=== PATIENT | female | born 1955 | race Caucasian/White ===

== ENCOUNTER 2020-01-08 13:54 | Inpatient (IN) | payer MEDICARE, OTHER ==
[~2020-01-08] VITALS: Ht 160 cm; Wt 58.1 kg
--- NOTE | 2020-01-09 07:40 | NUR ---
TARGETEER NOTE: 64 YEAR OLD FEMALE BROUGHT INTO THE HOSPITAL VIA AMBULANCE ON A GURNEY WITH EMS PRESENT. PT ADMITTED ON A 5150 HOLD FOR GD. PT WAS FOUND BY STAFF AT [facility] TO HAVE NOT SLEPT IN THREE DAYS AND WAS NOT ORIENTED TO PERSON, PLACE AND TIME. PER COLLATERAL INFORMATION, PATIENT REPORTED BEING A 19 YEAR OLD. PT STATED SHE ATTEMPTED TO DRINK HAND DIRECTOR OF MIDWIFERY/STAFF MIDWIFE AND PUT IT ON HER HAIR AND CAMACHO. PATIENT HAS A HISTORY OF SCHIZOPHRENIA WITH MULITPLE PREVIOUS IN PATIENT PSYCHIATRIC HOSPITALIZATIONS. PT ADMITTED ON A 5150 HOLD FOR GD. PT UNABLE TO PROVIDE A SAFE PLAN OF CARE FOR SELD. UPON FACE TO FACE EVALUATION, PT IS DISHEVELED, UNCLEAN AND UNKEPT. PT APPEARS TO BE RESPONDING TO INTERNAL STIMULI. PT IS UNWILLING TO ANSWER QUESTIONS DURING INITIAL INTERVIEW. PT IS CONFUSED AND A+OX1, ABLE TO MAKE BASIC NEEDS KNOWN. PT SPEECH GARBLED, HYPERVERBAL AND PRESSURED. PT HAS A MEDICAL HISTORY OF CAROTID STENOSIS, HYPERTENSION, SEIZURE DISORDER, THROAT CANCER, OSTEOARTHRITIS AND GERD. VSS, NKDA. PT ORIENTED TO THE UNIT. PATIENTS RIGHT'S AND GUIDE BOOK GIVEN. PT REFUSED PNEUMOCOCCAL AND FLU SHOT. ATTEMPTED TO EDUCATED PT RE IMPORTANCE OF VACCINATIONS.
[2020-01-09 08:00] VITALS: BP 132/73
[2020-01-09] MEDS ORDERED: MAGNESIUM HYDROXIDE 30 ML UDC PO PRN ×2 (08:00→10:30)
[2020-01-09] MEDS ORDERED: ACETAMINOPHEN 325 MG TABLET PO PRN (08:00)
[2020-01-09] MEDS ORDERED: MAG HYDROX/AL HYDROX/SIMETH 30 ML UDC PO PRN (08:00)
[2020-01-09] MEDS ORDERED: BLOOD SUGAR DIAGNOSTIC 1 EACH STRIP IN ONE (08:00)
[2020-01-09] MEDS ORDERED: AMLO10TA7 PO (08:07)
[2020-01-09] MEDS ORDERED: ARIP5TAB10 PO (08:09)
[2020-01-09] MEDS ORDERED: TRAZ-182 PO (08:09)
[2020-01-09] MEDS ORDERED: SERT50TA PO (08:09)
[2020-01-09] MEDS ORDERED: AMLO5TAB9 PO (08:27)
[2020-01-09] MEDS ORDERED: [UNRECOGNIZED DRUG - CODE] PO (08:27)
[2020-01-09] MEDS ORDERED: ALEN70TA3 PO (08:27)
[2020-01-09] MEDS ORDERED: VITA400C19 PO (08:27)
[2020-01-09] MEDS ORDERED: VALB40CA PO (08:27)
[2020-01-09] MEDS ORDERED: ALBU18HF2 IH (08:27)
[2020-01-09] MEDS ORDERED: ACET-868 PO (08:27)
[2020-01-09] MEDS ORDERED: TEMA30CA5 PO (08:27)
[2020-01-09] MEDS ORDERED: PROP20TA7 PO (08:27)
[2020-01-09] MEDS ORDERED: HALO100A2 IM (08:27)
[2020-01-09] MEDS ORDERED: DIPH50CA38 PO (08:27)
[2020-01-09] MEDS ORDERED: UMEC1BLS IH (08:27)
[2020-01-09] MEDS ORDERED: FAMO20TA8 PO (08:27)
[2020-01-09] MEDS ORDERED: HALO5TAB PO (08:27)
[2020-01-09] MEDS ORDERED: MAGN400O6 PO (08:27)
--- NOTE | 2020-01-09 09:38 | NUR ---
GPS RN NOTE : DR SARGENT NOTIFIED OF A NEW ADMISSION WITH STANDING ORDERS , DR CUELLO NOTIFIED TO RECONCILED HOME MEDICATION, T/.O ORDER ALBUTEROL RN INHALER Q 4 RH PRN ORDER PLACED AND CARED OUT WILL CONTINUE MONITORING.
[2020-01-09] MEDS: BENZTROPINE MESYLATE (1 MG) 1 MG TABLET PO SCH ×2 (09:50→16:54)
[2020-01-09] MEDS: HALOPERIDOL 5 MG TABLET PO SCH ×2 (09:50→16:54)
[2020-01-09] MEDS ORDERED: ALBUTEROL FS 2.5 MG/0.5 ML VIAL.NEB NEB PRN (10:00)
--- NOTE | 2020-01-09 10:02 | NUR ---
FACILITY CONTACT: SW contacted [facility] Address: [address], [place] [address] for collateral and discharge planning and spoke to Liudmila order dispatcher who stated Yolanda estate administrator is currently not available and asked SW to call back in an hour.
[2020-01-09] MEDS: LORAZEPAM 0.5 MG TABLET PO PRN ×2 (10:04→21:44)
--- NOTE | 2020-01-09 10:06 | NUR ---
RN NOTE: ANXIETY PT EXHIBITING AGGRESSIVE BEHAVIOR. UNABLE TO BE REDIRECTED. MEDICATED WITH ATIVAN 0.5 MG PO PRN
[2020-01-09] MEDS ORDERED: FAMOTIDINE (20 MG) 20 MG TABLET PO PRN (10:30)
[2020-01-09] MEDS ORDERED: ALBUTEROL SULFATE INH 18 GM HFA.AER.AD IH PRN (10:30)
[2020-01-09] MEDS ORDERED: Medication Not On Formulary EA (Umeclidinium Brm/Vilanterol Tr (Anoro Ellipta 62.5-25 Mc IH PRN (10:30)
[2020-01-09] MEDS ORDERED: ALBUTEROL FS 2.5 MG/3 ML VIAL.NEB NEB PRN (11:00)
--- NOTE | 2020-01-09 11:02 | NUR ---
SW COLLATERAL CONTACT: SW contacted pts case advocate at [employer] ([phone]) who provided with collateral information. Per Linh, pt has been living at [facility] Address: [address], [place] [address] for over 10 years and states pt does not have any family or friend contact. Linh states, she does not have any personal history on pt and [facility] pt has been psychiatrically hospitalized several times and was psychiatrically hospitalized for 4 years at [facility]. Per Linh, pt is under the psychiatric care of Dr. Efrem Price [address] [place] [id number] [address] [employer] Dr. Jakob Diaz Address: [address] [place] [address] . Per Linh, pt also recently received Haldol Dec 2/3 weeks ago and stated she was not sure of the dose and would contact with updated medication information. Per Linh, pt will also return to [facility] Address: [address], [place] [address] once stable for discharge and transportation with be provided.
--- NOTE | 2020-01-09 12:07 | NUR ---
INITIAL DISCHARGE PLAN: Pt will return to [facility] Address: [address], [place] [address] . Per case making machine operator [employer] ([phone]) pt will return once stable for discharge. NIKKO will help form a safe and proper discharge in collaboration with .
[2020-01-09 15:40] VITALS: BP 132/73
[2020-01-09 16:00] VITALS: BP 143/74
--- NOTE | 2020-01-09 16:07 | NUR ---
NIKKO COLLATERAL CONTACT: NIKKO received a call from pts medical case worker at [employer] [facility] ([phone]) who stated that pt last received 100mg of Haldol Dec on 12/11/19 on the Left Glut and is due every 4 weeks. NIKKO informed pts RN to request order from .
[2020-01-09] MEDS: VITAMIN E 400 UNIT CAPSULE PO SCH (16:54)
[2020-01-09] MEDS ORDERED: VITAMIN E 400 UNIT PO SCH (17:00)
[2020-01-09 19:59] VITALS: BP 106/65
[2020-01-09] MEDS: PROPRANOLOL HCL 10 MG TABLET PO SCH (20:51)
--- NOTE | 2020-01-09 20:53 | NUR ---
GPS RN NOTES: REFUSED MEDICATION PT REFUSED PROPRANOLOL DUE AT 2100. PT TEARFUL AND STATED, "I CANT. BLOOD PRESSURE IS NOT A THING." EXPLAIN RISK AND BENEFITS X3. PT INCREASED AGITATION. CONTINUE TO MONITOR.
--- NOTE | 2020-01-09 21:45 | NUR ---
GPS RN NOTES: ANXIOUS UPON DOING ROUNDS, PT YELLING IN HER ROOM TALKING TO HERSELF LOUDLY. PT RESTLESS, ANGRY, ANXIOUS. PT STATED, "WHATS GOT TO DO?!" OFFERED ATIVAN PRN ORDERED. PT AGREED AND TOLERATED MEDICATION WELL. CONTINUE TO MONITOR.
--- NOTE | 2020-01-10 00:33 | NUR ---
GPS RN NOTES: UPON DOING ROUNDS, PT AWAKE TALKING TO HERSELF. PT OPENING AND CLOSING HER DOOR. PT STATED SHE IS UNABLE TO SLEEP. OFFERED RESTORIL PRN ORDERED. PT AGREED THEN REFUSED MEDICATION. PT OPENED CAPSULE AND STATED, "THIS SHIT IS POP ROCKS SEE?!" EXPLAIN RISKS AND BENEFITS PT STILL REFUSED X3. INCREASED AGITATION. DOCUMENTED RESTORIL WASTE IN OMNICELL WITH OTHER RN WITNESS. CONTINUE TO MONITOR PT.
[2020-01-10] MEDS: ACETAMINOPHEN 325 MG TABLET PO PRN ×2 (02:03→15:10)
--- NOTE | 2020-01-10 02:05 | NUR ---
GPS RN NOTES: HEADACHE PT C/O OF HEADACHE PAIN 06/05. OFFERED TYLENOL 325MG PO PRN. VITALS WNL. NO SOB. NO RESP DISTRESS. BREATHING EVEN. PT AGREED AND TOLERATED MEDICATION WELL. CONTINUE TO MONITOR.
[2020-01-10 06:51] LABS: CHOLESTEROL 124 mg/dL (<200); HDL CHOLESTEROL 71 mg/dL (40-60); LDL 50 mg/dL (0-99); TRIGLYCERIDES 35 mg/dL (30-150)
[2020-01-10 06:55] LABS: ALBUMIN 3.5 g/dL (3.4-5.0); BILIRUBIN,TOTAL 0.3 mg/dL (0.2-1.0); CREATININE 0.6 mg/dL (0.6-1.3); TOTAL PROTEIN, SERUM 6.8 g/dL (6.4-8.2)
[2020-01-10 07:19] LABS: POTASSIUM 3.9 mmol/L (3.5-5.1)
[2020-01-10 08:00] VITALS: BP 133/81
--- NOTE | 2020-01-10 08:32 | NUR ---
DR. CUELLO INFORMED OF ABNORMAL LABS.
[2020-01-10] MEDS: BENZTROPINE MESYLATE (1 MG) 1 MG TABLET PO SCH ×2 (09:14→17:51)
[2020-01-10] MEDS: PROPRANOLOL HCL 10 MG TABLET PO SCH ×2 (09:15→20:03)
[2020-01-10] MEDS: AMLODIPINE BESYLATE 5 MG TABLET PO SCH (09:15)
[2020-01-10] MEDS: HALOPERIDOL 5 MG TABLET PO SCH ×2 (09:15→17:51)
[2020-01-10 11:43] LABS: URINE SODIUM, RANDOM 7 mmol/l (40-220)
--- NOTE | 2020-01-10 12:30 | NUR ---
urine specimen sent as per md orders.
--- NOTE | 2020-01-10 13:56 | NUR ---
GROUP THERAPY: NIKKO encouraged pt to participate in group therapy on this day. Pt began yelling at SW and stated, "who are you, get out of my room." Pt has limited insight and is not appropriate for group at this time. Pt has marked impairment in functioning and is only alert and oriented x2, to self and place, is hallucinating, and presents with irritable mood.
--- NOTE | 2020-01-10 15:14 | NUR ---
given tylenol for joint pain.
--- NOTE | 2020-01-10 15:25 | NUR ---
rn obtained last injection date of haldol decanoate 12/15/19, from transferring facility.information called to and [place] ordered
[2020-01-10 15:47] LABS: OSMOLALITY,URINE 45 mOS/kg (340-1090)
[2020-01-10 16:00] VITALS: BP 123/69
[2020-01-10] MEDS: VITAMIN E 400 UNIT CAPSULE PO SCH (17:51)
--- NOTE | 2020-01-10 18:30 | NUR ---
call out to dr. smith with lab reports from today,stated he already had them.
[2020-01-10] MEDS: SODIUM CHLORIDE 1000 MG TABLET PO SCH (19:49)
[2020-01-10 20:03] VITALS: BP 111/69
[2020-01-10] MEDS: TEMAZEPAM 7.5 MG CAPSULE PO PRN (22:25)
--- NOTE | 2020-01-10 22:26 | NUR ---
GPS-RN NOTE: INSOMNIA PATIENT C/O INABILITY TO SLEEP. ADMINISTERED RESTORIL 7.5MG PO ORDERED. WILL CONTINUE TO MONITOR FOR PT'S SAFETY.
[2020-01-11] MEDS: LORAZEPAM 0.5 MG TABLET PO PRN (02:15)
--- NOTE | 2020-01-11 02:16 | NUR ---
GPS-RN NOTE: ANXIETY PATIENT IS ANXIOUS AND RESTLESS. ADMINISTERED ATIVAN 0.5MG PO ORDERED. WILL CONTINUE TO MONITOR FOR PATIENT'S SAFETY.
[2020-01-11 06:44] LABS: BASOPHILS % (AUTO) 0.9 % (0.0-2.0); EOSINOPHILS % (AUTO) 3.2 % (0.0-6.0); HEMATOCRIT 40 % (33-45); HEMOGLOBIN 13.5 g/dL (11.5-14.8); LYMPHOCYTES # (AUTO) 0.6 /CMM (0.8-4.8); LYMPHOCYTES % (AUTO) 12.1 % (20.0-44.0); MEAN CORPUSCULAR HGB CONC 34 g/dl (31.0-36.0); MEAN CORPUSCULAR VOLUME 90 fL (82-100); MONOCYTES # (AUTO) 0.5 /CMM (0.1-1.30); MONOCYTES % (AUTO) 9.3 % (2.0-12.0); NEUTROPHILS # (AUTO) 3.8 /CMM (1.8-8.9); NEUTROPHILS % (AUTO) 74.5 % (43.0-81.0); PLATELET COUNT (AUTO) 368 /CMM (150-450); RED BLOOD CELL COUNT(AUTO) 4.49 MIL/uL (4.0-5.2); WHITE BLOOD COUNT (AUTO) 5.1 K/uL (4.3-11.0)
[2020-01-11 07:10] LABS: CREATININE 0.5 mg/dL (0.6-1.3); MAGNESIUM 1.9 mg/dL (1.8-2.4); PHOSPHORUS 3.8 mg/dL (2.5-4.9); POTASSIUM 4.3 mmol/L (3.5-5.1)
[2020-01-11 08:00] VITALS: BP 129/66
[2020-01-11] MEDS: PROPRANOLOL HCL 10 MG TABLET PO SCH ×2 (08:44→20:54)
[2020-01-11] MEDS: BENZTROPINE MESYLATE (1 MG) 1 MG TABLET PO SCH ×2 (08:44→16:17)
[2020-01-11] MEDS: SODIUM CHLORIDE 1000 MG TABLET PO SCH ×2 (08:44→16:17)
[2020-01-11] MEDS: HALOPERIDOL 5 MG TABLET PO SCH ×2 (08:44→16:17)
[2020-01-11] MEDS: AMLODIPINE BESYLATE 5 MG TABLET PO SCH (08:44)
[2020-01-11 16:02] VITALS: BP 112/60
[2020-01-11] MEDS: VITAMIN E 400 UNIT CAPSULE PO SCH (16:17)
[2020-01-11 19:54] VITALS: BP 132/76
[2020-01-11 20:04] VITALS: BP 132/76
[2020-01-11] MEDS: TEMAZEPAM 7.5 MG CAPSULE PO PRN (21:45)
--- NOTE | 2020-01-11 21:45 | NUR ---
GPS RN NOTE: REFUSED SKIN ASSESSMENT PATIENT IS CONFUSED, FORGETFUL, EASILY AGITATED, PARANOID, DISORGANIZED, REFUSED SKIN ASSESSMENT X 3 DESPITE OF RISKS & BENEFITS EXPLANATIONS. WILL CONTINUE TO MONITOR.
--- NOTE | 2020-01-11 21:45 | NUR ---
GPS RN NOTE: INSOMNIA PATIENT VERBALIZED THAT SHE IS UNABLE TO SLEEP & WANTS TO TAKE SLEEPING MEDICINE. PRN RESTORIL 7.5 MG 1 CAP PO GIVEN. WILL CONTINUE TO MONITOR FOR ANY CHANGES.
--- NOTE | 2020-01-12 01:24 | NUR ---
GPS RN NOTE: MAALOX GIVEN PATIENT VERBALIZED C/O UPSET STOMACH/INDIGESTION. PRN MAALOX GIVEN ORDERED. WILL CONTINUE TO MONITOR.
[2020-01-12] MEDS: LORAZEPAM 0.5 MG TABLET PO PRN ×2 (02:45→15:00)
--- NOTE | 2020-01-12 02:49 | NUR ---
GPS RN NOTE: ANXIETY PATIENT IS AWAKE & STATED THAT SHE IS ANXIOUS & RESTLESS & UNABLE TO SLEEP. PRN ATIVAN 0.5 MG 1 TAB PO GIVEN. WILL CONTINUE TO MONITOR.
[2020-01-12 06:33] LABS: BASOPHILS # (AUTO) 0.1 /CMM (0.0-0.2); EOSINOPHILS % (AUTO) 2.4 % (0.0-6.0); HEMATOCRIT 42 % (33-45); HEMOGLOBIN 13.7 g/dL (11.5-14.8); LYMPHOCYTES # (AUTO) 0.8 /CMM (0.8-4.8); LYMPHOCYTES % (AUTO) 12.6 % (20.0-44.0); MEAN CORPUSCULAR HGB CONC 33 g/dl (31.0-36.0); MEAN CORPUSCULAR VOLUME 92 fL (82-100); MONOCYTES # (AUTO) 0.6 /CMM (0.1-1.30); MONOCYTES % (AUTO) 10.6 % (2.0-12.0); NEUTROPHILS # (AUTO) 4.5 /CMM (1.8-8.9); NEUTROPHILS % (AUTO) 73.4 % (43.0-81.0); PLATELET COUNT (AUTO) 414 /CMM (150-450); RED BLOOD CELL COUNT(AUTO) 4.54 MIL/uL (4.0-5.2); WHITE BLOOD COUNT (AUTO) 6.1 K/uL (4.3-11.0)
[2020-01-12 06:42] LABS: CREATININE 0.7 mg/dL (0.6-1.3); MAGNESIUM 2.1 mg/dL (1.8-2.4); POTASSIUM 4.3 mmol/L (3.5-5.1)
[2020-01-12 08:00] VITALS: BP 101/66
[2020-01-12] MEDS: HALOPERIDOL 5 MG TABLET PO SCH ×2 (08:19→16:52)
[2020-01-12] MEDS: BENZTROPINE MESYLATE (1 MG) 1 MG TABLET PO SCH ×2 (08:19→16:52)
[2020-01-12] MEDS: PROPRANOLOL HCL 10 MG TABLET PO SCH ×2 (08:19→21:07)
[2020-01-12] MEDS: SODIUM CHLORIDE 1000 MG TABLET PO SCH ×2 (08:19→16:52)
[2020-01-12] MEDS: AMLODIPINE BESYLATE 5 MG TABLET PO SCH (08:20)
--- NOTE | 2020-01-12 09:00 | NUR ---
RN NOTE- PT CONFUSED DISORGANIZED THOUGHTS, GARBLED SPEECH AT TIMES, PO INTAKE GOOD MED COMPLIANT WANDERING UNIT NEEDS ATTENDED
--- NOTE | 2020-01-12 12:07 | NUR ---
GROUP THERAPY: SW encouraged pt to attend group therapy on this present day. Pt is unable to participate in group milieu, pt is bizarre, labile, and disorganized, Pt is only alert to herself and when approached pt is paranoid and suspicious and responding to auditory hallucinations.
--- NOTE | 2020-01-12 15:05 | NUR ---
RN NOTE- PT C/O ANXIETY RESTLESSNESS . ATIVAN 0.5 MG GIVEN
--- NOTE | 2020-01-12 16:00 | NUR ---
RN NOTE- ATIVAN EFFECTIVE. PT CALM
[2020-01-12 16:05] VITALS: BP 122/59
[2020-01-12] MEDS: VITAMIN E 400 UNIT CAPSULE PO SCH (16:52)
[2020-01-12 19:36] VITALS: BP 125/65
[2020-01-12 19:43] VITALS: BP 125/65
[2020-01-13] MEDS: TEMAZEPAM 7.5 MG CAPSULE PO PRN ×2 (00:04→21:16)
--- NOTE | 2020-01-13 00:06 | NUR ---
GPS RN NOTE: INSOMNIA PATIENT STATED SHE CAN'T SLEEP & NOTED TO BE RESTLESS. PRN RESTORIL 7.5 MG 1 CAP PO GIVEN. WILL CONTINUE TO MONITOR.
[2020-01-13] MEDS: ACETAMINOPHEN 325 MG TABLET PO PRN (03:41)
--- NOTE | 2020-01-13 03:44 | NUR ---
GPS RN NOTE: BACK PAIN PATIENT C/O BACK PAIN, UNABLE TO SCALE BUT REQUESTED TO TAKE TYLENOL 325 MG 1 TAB PO ORDERED. WILL CONTINUE TO MONITOR.
[2020-01-13 07:18] LABS: CREATININE 0.7 mg/dL (0.6-1.3); MAGNESIUM 2.1 mg/dL (1.8-2.4); PHOSPHORUS 3.6 mg/dL (2.5-4.9); POTASSIUM 4.1 mmol/L (3.5-5.1)
[2020-01-13 07:22] LABS: URIC ACID 3.2 mg/dL (2.6-7.2)
[2020-01-13 08:03] VITALS: BP 129/73
[2020-01-13] MEDS: PROPRANOLOL HCL 10 MG TABLET PO SCH ×2 (08:47→21:16)
[2020-01-13] MEDS: HALOPERIDOL 5 MG TABLET PO SCH ×2 (08:47→17:11)
[2020-01-13] MEDS: BENZTROPINE MESYLATE (1 MG) 1 MG TABLET PO SCH ×2 (08:47→17:10)
[2020-01-13] MEDS: SODIUM CHLORIDE 1000 MG TABLET PO SCH ×2 (08:47→17:11)
[2020-01-13 16:00] VITALS: BP 147/59
--- NOTE | 2020-01-13 16:41 | NUR ---
restless at times,pacing the unit.med compliant.
[2020-01-13] MEDS: VITAMIN E 400 UNIT CAPSULE PO SCH (17:10)
[2020-01-13] MEDS: AMLODIPINE BESYLATE 5 MG TABLET PO SCH (17:11)
[2020-01-13 20:06] VITALS: BP 129/65
--- NOTE | 2020-01-14 06:54 | NUR ---
chief jailer closing notes pt in bed resting but awake, confusion noted. on and off sleeping from frequent urinating because she drink a lot of water. no signs of any distress noted. kept her warm and comfortable at all times. no signs of any outburst throughout the night. will continue Q 15 minutes monitoring for safety and needs.
[2020-01-14 08:00] VITALS: BP 118/71
[2020-01-14] MEDS: SODIUM CHLORIDE 1000 MG TABLET PO SCH ×2 (08:12→16:35)
[2020-01-14] MEDS: BENZTROPINE MESYLATE (1 MG) 1 MG TABLET PO SCH ×2 (08:12→16:35)
[2020-01-14] MEDS: HALOPERIDOL 5 MG TABLET PO SCH ×2 (08:12→16:35)
[2020-01-14] MEDS: PROPRANOLOL HCL 10 MG TABLET PO SCH ×2 (08:13→20:13)
[2020-01-14] MEDS: AMLODIPINE BESYLATE 5 MG TABLET PO SCH (08:13)
--- NOTE | 2020-01-14 09:00 | NUR ---
RN NOTE- PT LABILE AGITATED AT TIMES, RESTLESS, MED COMPLIANT REDIRECTED TO ROOM, NEEDS ATTENDED, PO INTAKE GOOD +AH 'VOICES TALKING"
[2020-01-14] MEDS: LORAZEPAM 0.5 MG TABLET PO PRN (10:12)
--- NOTE | 2020-01-14 10:12 | NUR ---
RN NOTE- ANXIETY RESTLESSNESS AND YELLING AT TIMES. REDIRECTED . ATIVAN 0.5 MG GIVEN
[2020-01-14] MEDS ORDERED: HALOPERIDOL DECANOATE IM 100 MG/ML AMPUL IM ONE (15:30)
[2020-01-14 16:00] VITALS: BP 124/73
[2020-01-14] MEDS: VITAMIN E 400 UNIT CAPSULE PO SCH (16:35)
--- NOTE | 2020-01-14 19:41 | NUR ---
GPS RN OPENING NOTES PATIENT RECEIVED RESTING IN BED COMFORTABLY; PATIENT IS A/OX1-2, CONFUSED, FORGETFUL AND ANXIOUS, PATIENT RAMBLING; NO APPARENT DISTRESS AT THIS TIME; BREATHING EVEN AND UNLABORED; NO SOB NOTED; TOLERATING ROOM AIR WELL; PATIENT AMBULATORY WITH STEADY GAIT; PATIENT DENIES SI/HI AT THIS TIME; PATIENT EDUCATED ON THE USE OF CALL LIGHT; SAFETY PRECAUTIONS IMPLEMENTED; BED LOCKED IN LOW POSITION; SIDE RAILSX2; WILL CONTINUE TO MONITOR Q15 MINS WITH THE HELP OF STAFF TO MAINTAIN SAFETY
--- NOTE | 2020-01-14 19:49 | NUR ---
GPS RN NOTE -- PATIENT REFUSING SKIN ASSESSMENT
[2020-01-14 20:00] VITALS: BP 151/74
[2020-01-14] MEDS: TEMAZEPAM 7.5 MG CAPSULE PO PRN (22:39)
[2020-01-14] MEDS ORDERED: NICOTINE PATCH (21MG) 21 MG PATCH.TD24 TD ONE (23:30)
[2020-01-14] MEDS: ACETAMINOPHEN 325 MG TABLET PO PRN (23:53)
--- NOTE | 2020-01-15 | NUR ---
GPS RN NOTES PATIENT REQUESTING TYLENOL; TYLENOL ADMINISTERED; PATIENT RESTLESS, CONTINUOUSLY RAMBLING/YELLING; LIMITS SET; PATIENT REPORTED UNDERSTANDING; WILL CONT TO MONITOR
[2020-01-15] MEDS: LORAZEPAM 0.5 MG TABLET PO PRN ×3 (01:46→20:38)
--- NOTE | 2020-01-15 01:46 | NUR ---
GPS RN NOTE, PATIENT HAS A COMPLAINT OF FEELING ANXIOUS AND IS REQUESTING ATIVAN AT THIS TIME. PATIENT VITAL SIGNS ARE STABLE. GAVE ATIVAN 0.5MG PO Q6HR PRN ORDERED. WILL REASSESS FOR ANXIETY AND I WILL CONTINUE TO MONITOR THIS PATIENT.
[2020-01-15 06:54] LABS: BASOPHILS # (AUTO) 0.1 /CMM (0.0-0.2); EOSINOPHILS % (AUTO) 2.4 % (0.0-6.0); HEMATOCRIT 41 % (33-45); HEMOGLOBIN 13.5 g/dL (11.5-14.8); LYMPHOCYTES # (AUTO) 0.8 /CMM (0.8-4.8); MEAN CORPUSCULAR HGB CONC 33 g/dl (31.0-36.0); MEAN CORPUSCULAR VOLUME 91 fL (82-100); MONOCYTES # (AUTO) 0.7 /CMM (0.1-1.30); MONOCYTES % (AUTO) 10.2 % (2.0-12.0); NEUTROPHILS # (AUTO) 5.1 /CMM (1.8-8.9); NEUTROPHILS % (AUTO) 74.4 % (43.0-81.0); PLATELET COUNT (AUTO) 402 /CMM (150-450); RED BLOOD CELL COUNT(AUTO) 4.48 MIL/uL (4.0-5.2); WHITE BLOOD COUNT (AUTO) 6.8 K/uL (4.3-11.0)
[2020-01-15 07:12] LABS: CALCIUM, SERUM 9.2 mg/dL (8.5-10.1); CREATININE 0.6 mg/dL (0.6-1.3); POTASSIUM 4.2 mmol/L (3.5-5.1)
[2020-01-15 08:00] VITALS: BP 148/69
[2020-01-15] MEDS: SODIUM CHLORIDE 1000 MG TABLET PO SCH ×2 (08:43→16:38)
[2020-01-15] MEDS: AMLODIPINE BESYLATE 5 MG TABLET PO SCH (08:43)
[2020-01-15] MEDS: HALOPERIDOL 5 MG TABLET PO SCH ×2 (08:43→16:38)
[2020-01-15] MEDS: NICOTINE PATCH (21MG) 21 MG PATCH.TD24 TD SCH (08:44)
[2020-01-15] MEDS: PROPRANOLOL HCL 10 MG TABLET PO SCH ×2 (08:44→20:37)
[2020-01-15] MEDS: DIVALPROEX SODIUM 250 MG TABLET.DR PO SCH ×3 (09:00→20:37)
--- NOTE | 2020-01-15 09:00 | NUR ---
RN NOTE- LABILE, IRRITABLE, YELLING, DISRUPTIVE, DR SARGENT CHANGED MEDS AFTER PAGING HIM. DEPAKOTE ADDED TO MEDICATION REGIMEN, PO INTAKE GOOD MED COMPLIANT
--- NOTE | 2020-01-15 09:41 | NUR ---
RN NOTE- YELLING AGITATION POSTURING, ATIVAN 0.5 MG GIVEN
[2020-01-15] MEDS: BENZTROPINE MESYLATE (1 MG) 1 MG TABLET PO SCH ×2 (09:54→16:39)
[2020-01-15] MEDS ORDERED: OLANZAPINE 10 MG VIAL IM STA (10:03)
[2020-01-15] MEDS ORDERED: LORAZEPAM INJ 2 MG/ML VIAL IM STA (10:04)
--- NOTE | 2020-01-15 10:20 | NUR ---
RN NOTE- PT ESCALATING SCREAMING. PT ASKING FOR SHOT. DR SARGENT CALLED. EXPLAINED CURRENT RX GIVEN . ORDERED ATIVAN 1 MG, ZYPREXA 5 MG IM. RX GIVEN W ASSIST FROM MALE AND FEMALE STAFF
--- NOTE | 2020-01-15 10:56 | NUR ---
RN NOTE- PT CALMED, QUIETLY RESTING IN BED. MEDICATION EFFECTIVE
--- NOTE | 2020-01-15 13:10 | NUR ---
SW COLLATERAL CONTACT: NIKKO received a call from pts rehabilitation caseworker at [employer] ([phone]) requestign updated information. NIKKO provided Linh with pt update.
[2020-01-15 16:00] VITALS: BP 117/56
[2020-01-15] MEDS: VITAMIN E 400 UNIT CAPSULE PO SCH (16:38)
[2020-01-15 19:46] VITALS: BP 159/76
[2020-01-15 20:05] VITALS: BP 159/76
[2020-01-16 08:00] VITALS: BP 126/71
[2020-01-16] MEDS: DIVALPROEX SODIUM 250 MG TABLET.DR PO SCH ×3 (08:12→21:20)
[2020-01-16] MEDS: HALOPERIDOL 5 MG TABLET PO SCH ×2 (08:12→16:25)
[2020-01-16] MEDS: AMLODIPINE BESYLATE 5 MG TABLET PO SCH (08:12)
[2020-01-16] MEDS: BENZTROPINE MESYLATE (1 MG) 1 MG TABLET PO SCH ×2 (08:12→16:25)
[2020-01-16] MEDS: NICOTINE PATCH (21MG) 21 MG PATCH.TD24 TD SCH (08:12)
[2020-01-16] MEDS: SODIUM CHLORIDE 1000 MG TABLET PO SCH ×2 (08:12→16:29)
[2020-01-16] MEDS: PROPRANOLOL HCL 10 MG TABLET PO SCH ×2 (08:13→21:20)
[2020-01-16 16:00] VITALS: BP 92/40
[2020-01-16 16:25] VITALS: BP 92/40
--- NOTE | 2020-01-16 16:26 | NUR ---
RN NOTE- PT TO RECEIVE HALDOL 5 MG AND COGENTIN 1 MG PO AT 1700 ADMINISTRATION TIME. VS- B/P- 92/40, HR- 64. PT IS ALERT ORIENTED AND INTERACTIVE. WILL HOLD 1700 DOSE AND MONITOR VS
[2020-01-16] MEDS: VITAMIN E 400 UNIT CAPSULE PO SCH (16:29)
[2020-01-16 19:59] VITALS: BP 93/67
[2020-01-16] MEDS: TEMAZEPAM 7.5 MG CAPSULE PO PRN (21:31)
--- NOTE | 2020-01-16 21:52 | NUR ---
GPS RN NOTE: INSOMNIA PT WAS C/O OF HAVING DIFFICULTY SLEEPING, ASKED IF SHE WOULD LIKE TO TAKE A SLEEPING MEDICATION SHE AGREED, ADMIN RESTORIL PRN @ 6960, WILL REASSESS AND CONTINUE TO MONITOR Q15MIN FOR SAFETY AND BEHAVIOR
[2020-01-17] MEDS: ACETAMINOPHEN 325 MG TABLET PO PRN ×3 (01:22→21:22)
[2020-01-17 08:00] VITALS: BP 109/68
[2020-01-17] MEDS: AMLODIPINE BESYLATE 5 MG TABLET PO SCH (09:00)
[2020-01-17] MEDS: PROPRANOLOL HCL 10 MG TABLET PO SCH ×2 (09:00→21:23)
[2020-01-17] MEDS: BENZTROPINE MESYLATE (1 MG) 1 MG TABLET PO SCH ×2 (09:21→17:55)
[2020-01-17] MEDS: DIVALPROEX SODIUM 250 MG TABLET.DR PO SCH ×3 (09:21→21:22)
[2020-01-17] MEDS: HALOPERIDOL 5 MG TABLET PO SCH ×2 (09:21→17:55)
[2020-01-17] MEDS: SODIUM CHLORIDE 1000 MG TABLET PO SCH ×2 (09:22→17:55)
[2020-01-17] MEDS: NICOTINE PATCH (21MG) 21 MG PATCH.TD24 TD SCH (09:31)
--- NOTE | 2020-01-17 10:05 | NUR ---
GIVEN TYLENO 325 MG PO FOR BACK ACHE.
--- NOTE | 2020-01-17 14:30 | NUR ---
GROUP THERAPY: Pt was present but unable to participate due to cognitive impairment. Pt is only alert to self and unable to engage in conversation. Pt was sitting at bedside and not easily roused by SW verbal cues.
[2020-01-17 16:00] VITALS: BP 129/56
[2020-01-17] MEDS: VITAMIN E 400 UNIT CAPSULE PO SCH (17:55)
[2020-01-17 20:00] VITALS: BP 119/55
--- NOTE | 2020-01-17 21:30 | NUR ---
GPS RN NOTE: PAIN PT REQUESTED TYLENOL FOR BACK PAIN, ADMIN TYLENOL PRN @ 2121, WILL REASSESS AND CONTINUE TO MONITOR Q15MIN FOR SAFETY AND BEHAVIOR.
[2020-01-18 08:00] VITALS: BP 103/56
--- NOTE | 2020-01-18 08:31 | NUR ---
NIKKO COLLATERAL CONTACT: NIKKO contacted pts returned case inspector at [employer] [facility] ([phone]) and left a voicemail informing her that pt will be discharged tomorrow. NIKKO requested a call back to coordinate pts transportation back to [facility].
[2020-01-18] MEDS: NICOTINE PATCH (21MG) 21 MG PATCH.TD24 TD SCH (08:42)
[2020-01-18] MEDS: AMLODIPINE BESYLATE 5 MG TABLET PO SCH (08:42)
[2020-01-18] MEDS: PROPRANOLOL HCL 10 MG TABLET PO SCH ×2 (08:43→20:59)
[2020-01-18] MEDS: DIVALPROEX SODIUM 250 MG TABLET.DR PO SCH ×3 (08:44→20:58)
[2020-01-18] MEDS: HALOPERIDOL 5 MG TABLET PO SCH ×2 (08:44→16:27)
[2020-01-18] MEDS: BENZTROPINE MESYLATE (1 MG) 1 MG TABLET PO SCH ×2 (08:44→16:26)
[2020-01-18] MEDS: SODIUM CHLORIDE 1000 MG TABLET PO SCH ×2 (08:44→16:26)
--- NOTE | 2020-01-18 10:02 | NUR ---
FACILITY CONTACT: NIKKO received a call from Yolanda, accounts receivable administrator at [facility] Address: [address], [place] [address] requesting updated information on pt. NIKKO informed her that pt will be discharged tomorrow. Yolanda agreed with discharge plan and asked to speak with pt.
--- NOTE | 2020-01-18 10:24 | NUR ---
FACILITY CONTACT: NIKKO received a call from Yolanda, data administrator at [facility] Address: [address], [place] [address] confirming pts transportation tomorrow and also requesting NIKKO fax pts list of medications and clinicals to . Addendum: 01/18/20 at 1029 by SKIP EL Yolanda also requested fax pts prescription to [facility] P: [phone] F: [phone].
[2020-01-18] MEDS: ACETAMINOPHEN 325 MG TABLET PO PRN ×2 (11:58→23:04)
[2020-01-18 16:00] VITALS: BP 112/60
[2020-01-18] MEDS: VITAMIN E 400 UNIT CAPSULE PO SCH (16:26)
[2020-01-18 20:20] VITALS: BP 110/67
--- NOTE | 2020-01-18 23:04 | NUR ---
GPS-RN NOTE: LOWER BACK PAIN PATIENT C/O LOWER BACK PAIN, ON A PAIN SCALE OF 3/10. ADMINISTERED ACETAMINOPHEN 325MG PO ORDERED. WILL CONTINUE TO REASSESS.
[2020-01-19 08:09] VITALS: BP 138/60
--- NOTE | 2020-01-19 08:24 | NUR ---
Dr. Howe gave an order to D/C hold and D/C to [facility] and to follow up with psych and medical doctors. Psychiatrist provided prescriptions.
[2020-01-19] MEDS: DIVALPROEX SODIUM 250 MG TABLET.DR PO SCH (08:49)
[2020-01-19] MEDS: AMLODIPINE BESYLATE 5 MG TABLET PO SCH (08:49)
[2020-01-19 08:52] VITALS: BP 120/60
[2020-01-19] MEDS: SODIUM CHLORIDE 1000 MG TABLET PO SCH (08:52)
[2020-01-19] MEDS: BENZTROPINE MESYLATE (1 MG) 1 MG TABLET PO SCH (08:52)
[2020-01-19] MEDS: PROPRANOLOL HCL 10 MG TABLET PO SCH (08:52)
[2020-01-19] MEDS: NICOTINE PATCH (21MG) 21 MG PATCH.TD24 TD SCH (08:52)
[2020-01-19] MEDS: HALOPERIDOL 5 MG TABLET PO SCH (08:52)
--- NOTE | 2020-01-19 09:00 | NUR ---
Brian [employer] made aware of the discharge and provided prescriptions.
--- NOTE | 2020-01-19 09:58 | NUR ---
DISCHARGE NOTE: Pt will be discharged at 11:00am via facility transport to [facility] Address: [address], [place] [address] . Pts supportive employment case manager Linh ([phone]) has been notified and agrees with discharge plan. Pts mood is euthymic with congruent affect. Pt denied visual/auditory hallucinations and denies suicidal/homicidal ideation. Pt is alert and oriented x3, is ambulatory, and appropriately dressed and groomed. Pt will be under the care of Psychiatrist: Dr. Efrem Price [address] [address] [place] [phone] and Exercise Specialist: Dr. Jakob Diaz Address: [address] [place] [address] . The multidisciplinary exit care form was done, printed, signed, and given to the patient.
--- NOTE | 2020-01-19 10:53 | NUR ---
GPS RN NOTE: PATIENT DISCHARGED TO [facility]IST[facility] ADDRESS [address], [place] [address] PATIENT LEFT THE UNIT AMBULATORY ACCOMPANIED BY 1 STAFF TO THE MAIN LOBBY AND PICKED UP BY TRANSPORT PTS CELL ASSEMBLY PINNER CHRISTEN NOTIFIED PATIENT MEDICATIONS RX FAX TO [facility] `[id number] PATIENT IS IN STABLE CONDITION. VSS. NO ACUTE DISTRESS NOTED. NO COMPLAINTS. COMPLIANT WITH MEDICATION MANAGEMENT. COOPERATIVE WITH PLAN OF CARE. PSYCHIATRIC TREATMENT PLANS MET. MEDICAL TREATMENT PLANS DEFERRED FOR CONTINUAL MONITORING. DENIES SI/HI/VAH AT THE TIME OF DISCHARGE. PATIENT REFUSED SKIN ASSESSMENT REFUSED FLU VACCINE PNEUMONIA VACCINE. EDUCATED PATIENT ABOUT AFTERCARE WITH COPY PROVIDED. RETURNED PERSONAL BELONGINGS TO PATIENT. MEDICATIONS RECONCILED WITH ALONG WITH PSYCHIATRIC DISCHARGE ORDERS. DISCHARGE PAPERWORK SIGNED. FOR FOLLOW UP WITH PSYCHIATRIST AND COLLATOR OPERATOR WITHIN 1 WEEK.
== END 2020-01-19 10:50 | disposition home or self-care (01) | DRG 885 ==
LOC: GPS 01-09 07:22
PROVIDERS: ADMIT Psychiatry & Neurology Psychiatry; ATTEND Nurse Practitioner Acute Care
DX: F20.9 Schizophrenia, unspecified (principal); E87.1 Hypo-osmolality and hyponatremia; F29 Unspecified psychosis not due to a substance or known physiological condition; Z73.6 Limitation of activities due to disability; R27.8 Other lack of coordination; Z91.81 History of falling; J44.9 Chronic obstructive pulmonary disease, unspecified; M81.0 Age-related osteoporosis without current pathological fracture; I10 Essential (primary) hypertension; K21.9 Gastro-esophageal reflux disease without esophagitis; F32.9 Major depressive disorder, single episode, unspecified; F41.9 Anxiety disorder, unspecified; R63.1 Polydipsia; E86.1 Hypovolemia
CPT/HCPCS: 36415; 80048-TC; 80053-TC; 80061-TC; 82533; 82962-TC; 83735-TC; 83935-TC; 84100-TC; 84300-TC; 84443-TC; 84550-TC; 85025-TC; 87081-TC; J1631; J2060; J3490